=== PATIENT | male | born 1965 | race Caucasian/White ===

== ENCOUNTER 2019-01-26 09:48 | Day surgery (SDC) | payer BC ==
[~2019-01-26] VITALS: Ht 167.6 cm; Wt 81.4 kg
[2019-01-26] VITALS (18 sets, daily range): BP systolic 117–183; BP diastolic 75–115; PULSE 65–96; RESP 13–38; Ht 167.6 cm; Wt 81.4 kg
--- NOTE | 2019-01-26 07:54 | SIPON ---
Date/Time of Note Date/Time of Note DATE: 01/26/19 TIME: 07:53 Operative Report Preoperative Diagnosis dns Postoperative Diagnosis dns Operation/Procedure Performed stm Surgeon see signature line data assistant na Anesthesia: general Estimated blood loss: 10 - 50 ml's Transfusion Required none Specimen septal bone Grafts/Implants none Complications none GEORGE SHEETS MD Jan 26, 2019 07:54
[~2019-01-26 09:48] MED LIST: ASPI-903 PO; HTN MED DAILY; METF-849 PO
[2019-01-26] MEDS ORDERED: METF850T13 PO (10:14)
[2019-01-26] MEDS ORDERED: LISI10TA2 PO (10:15)
[2019-01-26] MEDS ORDERED: ASPI81TA52 PO (10:15)
[2019-01-26] MEDS ORDERED: LACTATED RINGER'S 1,000 ML IV SCH (10:30)
--- NOTE | 2019-01-26 11:10 | HPN ---
Date/Time of Note Date/Time of Note DATE: 01/26/19 TIME: 11:10 Interval H&P Admission Note Pt. seen H&P reviewed: No system changes GEORGE SHEETS MD Jan 26, 2019 11:10
[2019-01-26] MEDS ORDERED: LIDOCAINE 1%/EPI 30 ML INJ ONE (11:24)
[2019-01-26] MEDS ORDERED: BACITRACIN/POLYMYXIN 28.35 GM OINT TOP ONE (11:24)
[2019-01-26] MEDS ORDERED: OXYMETAZOLINE 0.05% 15 ML NAS SPRAY NASAL ONE (11:24)
--- NOTE | 2019-01-26 11:33 | PREAC ---
Date/Time of Note Date/Time of Note DATE: 01/26/19 TIME: 11:29 Anesthesia Eval and Record Evaluation Time Pre-Procedure Interview DATE: 01/26/19 TIME: 11:29 Age 53 Sex male NPO: 8 hrs Preoperative diagnosis septoplasty Planned procedure septoplasty Past Medical History Past Medical History: Includes Cardio: HTN Endo: Diabetes Surgery & Anesthesia Issues No known issue Meds Anticoagulation: No Beta Lala within 24 hr: No Reason Beta Lala not given: Pt. not on B-Lala Reported Medications Lisinopril* (Lisinopril*) 10 Mg Tablet, 10 MG PO DAILY, #30 TAB 01/26/19 Aspirin (Low Dose Aspirin) 81 Mg Tablet.dr, 81 MG PO DAILY, #30 TAB 01/26/19 Metformin Hcl* (Metformin Hcl*) 850 Mg Tablet, 850 MG PO WITH BREAKFAST DINNE, #60 TAB 01/26/19 Discontinued Reported Medications [Htn Med.daily] No Conflict Check 05/10/16 Aspirin* (Aspirin* Chew) 81 Mg Tab.chew, 81 MG PO DAILY, TAB.CHEW 05/10/16 Metformin* (Glucophage*) 500 Mg Tab, 500 MG PO BID 11/06/12 Current Medications Lactated Ringer's 1,000 ml @ 25 mls/hr Q24H IV Last administered on 01/26/19at 10:52; Admin Dose 25 MLS/HR; Start 01/26/19 at 10:30 Meds reviewed: Yes Allergies Coded Allergies: No Known Allergy (Unverified , 01/26/19) Allergies Reviewed: Yes Labs/Studies Labs Reviewed: Reviewed by anesthesiologist test: N/A Pre-procedure Exam Last vitals Vital Signs Date Temp Pulse Resp B/P (MAP) Pulse Ox O2 O2 Flow FiO2 Time Delivery Rate 01/26/19 96.7 77 16 117/76 98 10:34 (90) Airway: Adequate mouth opening, Adequate thyromental dist Mallampati: Mallampati II Teeth: Normal Lung: Normal Heart: Normal ASA Physical Status ASA physical status: 2 Emergency: None Pre-operative Attestations Prior to commencing anesthesia and surgery, the patient was re-evaluated, there was verification of: *The patient's identity *The results of appropriate recent lab work and preoperative vital signs *The above evaluation not changing prior to induction *Anesthetic plan, risk benefits, alternative and complications discussed with patient/family; questions answered; patient/family understands, accepts and wishes to proceed. SASKIA BAUTISTA DO Jan 26, 2019 11:33
[2019-01-26] MEDS ORDERED: DESFLURANE 15 MIN ONE (11:40)
[2019-01-26] MEDS ORDERED: MIDAZOLAM 1 MG/ML 2 ML INJ ONE (11:48)
[2019-01-26] MEDS ORDERED: LIDOCAINE 1% (MDV) 20 ML INJ ONE (11:48)
[2019-01-26] MEDS ORDERED: ROCURONIUM 50 MG INJ ONE (11:48)
[2019-01-26] MEDS ORDERED: PROPOFOL 20 ML ONE (11:48)
[2019-01-26] MEDS ORDERED: DEXAMETHASONE 4 MG/ML 5 ML INJ ONE (12:09)
[2019-01-26] MEDS ORDERED: ONDANSETRON 4 MG INJ ONE (12:09)
[2019-01-26] MEDS ORDERED: SUGAMMADEX SODIUM 200 MG/2 ML VIAL IV ONE (13:12)
--- NOTE | 2019-01-26 13:32 | PAC ---
Date/Time of Note Date/Time of Note DATE: 01/26/19 TIME: 13:32 Post-Anesthesia Notes Post-Anesthesia Note Last documented vital signs Vital Signs Date Temp Pulse Resp B/P (MAP) Pulse Ox O2 O2 Flow FiO2 Time Delivery Rate 01/26/19 98 90 19 150/62 98 1332 Activity: WNL Respiratory function: WNL Cardiovascular function: WNL Mental status: Baseline Pain reasonably controlled: Yes Hydration appropriate: Yes Nausea/Vomiting absent: Yes SASKIA BAUTISTA DO Jan 26, 2019 13:32
--- NOTE | 2019-01-28 17:12 | RADRPT ---
Vent Rate: 71 bpm RR Interval: 844 msec LA Interval: 153 msec QRS Duration: 94 msec QT Interval: 412 msec QTC Interval: 448 msec P-R-T [place] [facility]: 63 - 57 - 134 degrees Sinus rhythm...normal P axis, V-rate 50- 99 Abnrm T, probable ischemia, anterolateral lds...T <-0.50mV, I aVL V2-V6 Electronically Signed By: Dakota Bo
== END 2019-01-26 15:15 | disposition home or self-care (01) ==
LOC: SDS 09:48
PROVIDERS: ATTEND Otolaryngology
DX: J34.2 Deviated nasal septum (principal); J34.3 Hypertrophy of nasal turbinates; E11.9 Type 2 diabetes mellitus without complications; I10 Essential (primary) hypertension; Z79.82 Long term (current) use of aspirin; Z79.84 Long term (current) use of oral hypoglycemic drugs
CPT/HCPCS: 30140; 30520; 82962; 88300; 88304; 93005; J1100; J2250; J2405; J3010; Z7512; Z7610